=== PATIENT | female | born 1985 | race Caucasian/White ===

== ENCOUNTER 2017-03-16 18:14 | Inpatient (IN) | payer OTHER, SELFPAY ==
[2017-03-16] MEDS ORDERED: Metoclopramide 10 MG/2 ML SDV IVPUSH ONE (19:22)
[2017-03-16] MEDS ORDERED: Citric Acid/Sodium Citrate Solution 30 ML Cup PO ONE (19:22)
[2017-03-16] MEDS ORDERED: Sodium Chloride 0.9% 10 ML Syringe FLUSH PRN (19:22)
[2017-03-16] MEDS: Lactated Ringers 1,000 ML IV SCH ×2 (19:37→20:24)
[2017-03-16] MEDS ORDERED: Bupivacaine 0.5% 30 ML SDV ONE (20:01)
--- NOTE | 2017-03-16 20:12 | PCM.PREANE ---
Preanesthetic Assessment - Anesthesia/Transfusion/Family Hx Anesthesia History: Prior Anesthesia Without Reaction Family History of Anesthesia Reaction: No Transfusion History: No Prior Transfusion(s) - Review of Systems General: No Symptoms Pulmonary: No Symptoms Cardiovascular: No Symptoms Gastrointestinal: No symptoms Neurological: No Symptoms Other: Reports: None - Physical Assessment NPO Status Date: 03/16/17 NPO Status Time: 17:00 O2 Sat by Pulse Oximetry: 98 Respiratory Rate: 18 Vital Signs: Last Vital Signs Temp 97.5 F 03/16/17 18:20 Pulse 77 03/16/17 18:20 Resp 18 03/16/17 18:20 BP 127/61 03/16/17 18:20 Pulse Ox 98 03/16/17 18:20 Height: 5 ft 4 in Weight: 103.691 kg ASA Class: 2E Mental Status: Alert & Oriented x3 Airway Class: Mallampati = 1 Dentition: Reports: Normal Dentition Thyro-Mental Finger Breadths: 3 Mouth Opening Finger Breadths: 3 ROM/Head Extension: Full Lungs: Clear to auscultation, Normal respiratory effort Cardiovascular: Regular Rate, Regular Rhythm, No Murmurs - Lab Values: Laboratory Last Values WBC 11.49 K/mm3 (3.98-10.04) H 03/16/17 19:48 RBC 4.09 M/mm3 (3.98-5.22) 03/16/17 19:48 Hgb 10.4 gm/L (11.2-15.7) L 03/16/17 19:48 Hct 31.4 % (34.1-44.9) L 03/16/17 19:48 MCV 76.8 fl (79.4-94.8) L 03/16/17 19:48 MCH 25.4 pg (25.6-32.2) L 03/16/17 19:48 MCHC 33.1 g/dl (32.2-35.5) 03/16/17 19:48 RDW Std Deviation 36.2 fL (36.4-46.3) L 03/16/17 19:48 Plt Count 203 K/mm3 (182-369) 03/16/17 19:48 MPV 10.4 fl (9.4-12.3) 03/16/17 19:48 - Allergies Allergies/Adverse Reactions: Allergies Allergy/AdvReac Type Severity Reaction Status Date / Time No Known Allergies Allergy Verified 03/16/17 19:02 - Blood Blood Available: No - Acknowledgements Anesthesia Type Planned: Spinal Pt an Appropriate Candidate for the Planned Anesthesia: Yes Alternatives and Risks of Anesthesia Discussed w Pt/Guardian: Yes Pt/Guardian Understands and Agrees with Anesthesia Plan: Yes PreAnesthesia Questionnaire - Past Health History Medical/Surgical History: Denies Medical/Surgical History HEENT History: Reports: Other (see below) Other HEENT History: ear surgery as a child Cardiovascular History: Reports: None Respiratory History: Reports: None Gastrointestinal History: Reports: GERD (with preg) Genitourinary History: Reports: Renal calculus FUR JOINER History: Reports: , Other (see below) : 3 Para: 2 Other OB/BYN History: D&C Musculoskeletal History: Reports: None - Infectious Disease History Infectious Disease History: Reports: None - Past Surgical History HEENT Surgical History: Reports: Myringotomy w tube(s) Female Surgical History: Reports: section Musculoskeletal Surgical History: Reports: Other (see below) (ankle) Other Musculoskeletal Surgeries/Procedures:: ankle surgery as child - SUBSTANCE USE Smoking Status *Q: Never Smoker Tobacco Use Within Last Twelve Months: No Second Hand Smoke Exposure: No Days Per Week of Alcohol Use: 0 Recreational Drug Use History: No - HOME MEDS Home Medications: Home Meds Famotidine [Pepcid AC] 10 mg PO ASDIRECTED 03/16/17 [History] Pnv No.122/Iron/Folic Acid [ Multi Tablet] 1 each PO DAILY 03/16/17 [ History] - CURRENT (IN HOUSE) MEDS Current Meds: Current Medications Lactated Ringer's (Ringers, Lactated) 1,000 mls @ 125 mls/hr IV ASDIRECTED [facility] Last Admin: 03/16/17 19:37 Dose: 125 mls/hr Sodium Chloride (Saline Flush) 10 ml FLUSH ASDIRECTED PRN PRN Reason: Keep Vein Open Discontinued Medications Citric Acid/Sodium Citrate (Bicitra Solution) 30 ml PO ONETIME ONE Stop: 03/16/17 19:23 Metoclopramide HCl (Reglan) 10 mg IVPUSH ONETIME ONE Stop: 03/16/17 19:23 Last Admin: 03/16/17 19:38 Dose: 10 mg
[2017-03-16] MEDS ORDERED: Lactated Ringers 2,000 ML ONE (20:28)
[2017-03-16] MEDS ORDERED: ceFAZolin 1 GM Vial ONE (20:28)
[2017-03-16] MEDS ORDERED: Ondansetron 4 MG/2 ML SDV ONE (20:28)
[2017-03-16] MEDS ORDERED: Oxytocin 10 Units/1 ML SDV ONE (20:28)
[2017-03-16] MEDS ORDERED: Ketorolac 30 MG/ML SDV ONE (20:28)
[2017-03-16] MEDS ORDERED: Morphine PF 10 MG/10 ML SDV ONE (20:29)
[2017-03-16] MEDS ORDERED: ceFAZolin 2 GM in Premix Bag 1 BAG IV ONE (20:34)
[2017-03-16] MEDS ORDERED: Meperidine PF 50 MG/ML Syringe IVPUSH PRN (20:55)
[2017-03-16] MEDS ORDERED: fentaNYL 100 MCG/2 ML SDV IVPUSH PRN (20:55)
[2017-03-16] MEDS ORDERED: Ondansetron 4 MG/2 ML SDV IVPUSH PRN (20:55)
[2017-03-16] MEDS ORDERED: ePHEDrine 50 MG/ML SDV IVPUSH PRN ×2 (20:55→22:17)
[2017-03-16] MEDS ORDERED: diphenhydrAMINE 50 MG/ML SDV IVPUSH PRN ×2 (20:55→22:17)
[2017-03-16] MEDS ORDERED: ePHEDrine/Normal Saline 25 MG/5 ML Syringe ONE ×2 (21:06→21:13)
--- NOTE | 2017-03-16 22:08 | PCM.OPNOTE ---
[id number] section Findings: viable female, weight 3200g, APGARS 8/8 at 2107. Thin lower uterine segment. Pre Op Diagnosis: prior , labor Post-Op Diagnosis: Same Anesthesia Technique: Spinal Primary Surgeon: Lucia Falcon Anesthesia Provider: Jessica Shirley Ct Scan Special Procedures Technologist: Sher Farrell Jr Fluid Replacement, Intraop: 2,700 Output, Urine Amount: 250 EBL in mLs: 600 Complications: None Condition: Good Free Text/Narrative:: The patient was taken to the operating room where epidural anesthesia was dosed to surgical levels without difficulty. The patient was prepped and draped in the usual sterile fashion in the dorsal supine position with a leftward tilt. A Pfannenstiel skin incision was made with the scalpel through prior incision and carried through to the underlying layer of fascia. The fascia was incised in the midline and extended laterally using Tello scissors. Kimberli clamps were used to elevate the superior aspect of the fascial incision, which was elevated, and the underlying rectus muscles were dissected off bluntly and using Tello scissors. Attention was then turned to the inferior aspect of the fascial incision, which in similar fashion was grasped with Kimberli clamps, elevated, and the underlying rectus muscles were dissected off bluntly and using the tello. The rectus muscles were dissected in the midline. The peritoneum was identified and entered using Metzenbaum scissors; this incision was extended superiorly and inferiorly with good visualization of the bladder. The bladder blade was inserted. The vesicouterine peritoneum was identified and entered sharply using Metzenbaum scissors. This incision was extended laterally and the bladder flap was created digitally. The bladder blade was reinserted. The lower uterine segment was incised in a transverse fashion using the scalpel and extended using bandage scissors as well as manual traction. Clear fluid was noted. The infant was subsequently delivered by flexing the head to the incision. Body and shoulders followed without difficulty. The cord was clamped and cut. The infant was subsequently handed to the awaiting front desk admin whose presence had been requested.. The placenta was delivered spontaneously intact with a three-vessel cord noted. The uterus was exteriorized and cleared of all clots and debris. The uterine incision was repaired in 2 layers using 0 monocryl. Lower uterine segment was very thin. Hemostasis was visualized. Hemostasis was visualized bilaterally. The uterus was returned to the abdomen. The uterine incision was reexamined and it was noted to be hemostatic. The pelvis was copiously irrigated. The fascia was closed with 1 PDS suture, and the skin was closed with 3-0 monocryl. Sponge, lap, and instrument counts were correct x2. The patient was stable at the completion of the procedure and was subsequently transferred to the recovery room in stable condition.
[2017-03-16] MEDS ORDERED: Docusate Sodium 100 MG Cap PO PRN (22:17)
[2017-03-16] MEDS ORDERED: Lanolin 100% Cream 7 GM Tube TOP PRN (22:17)
[2017-03-16] MEDS ORDERED: Naloxone 0.4 MG/ML SDV IVPUSH PRN (22:17)
[2017-03-16] MEDS ORDERED: Witch Hazel Medicated Pads 100/Jar TOP PRN (22:17)
[2017-03-16] MEDS ORDERED: Dextrose 5%-0.45% NaCl 1,000 ML IV SCH (22:30)
[2017-03-16] MEDS ORDERED: Ketorolac 30 MG/ML SDV IVPUSH SCH (22:30)
[2017-03-16] MEDS ORDERED: Dextrose 5%-Lactated Ringers 1,000 ML IV SCH (22:30)
--- NOTE | 2017-03-16 22:33 | PCM.POSTAN ---
POST ANESTHESIA ASSESSMENT - MENTAL STATUS Mental Status: alert, oriented - VITAL SIGNS Pulse Rate: 87 SaO2: 100 Resp Rate: 16 Blood Pressure: 120/61 Temperature: 97.4 F - RESPIRATORY Respiratory Status: respiratory rate WNL, airway patent, O2 saturation stable, supplemental oxygen - CARDIOVASCULAR CV Status: pulse rate WNL, blood pressure stable - GASTROINTESTINAL GI Status: no symptoms - PAIN Pain Score: 0 - POST OP HYDRATION Hydration Status: adequate & stable
[2017-03-17] MEDS: Ketorolac 30 MG/ML SDV IVPUSH SCH ×3 (03:18→15:02)
--- NOTE | 2017-03-17 08:09 | PCM48HPAN ---
Post Anesthesia Note - EVALUATION WITHIN 48HRS OF ANESTHETIC Vital Signs in Normal Range: Yes Patient Participated in Evaluation: Yes Respiratory Function Stable: Yes Airway Patent: Yes Cardiovascular Function Stable: Yes Hydration Status Stable: Yes Pain Control Satisfactory: Yes Nausea and Vomiting Control Satisfactory: Yes Mental Status Recovered: Yes
[2017-03-17] MEDS: Acetaminophen/oxyCODONE 325-5 MG Tab PO PRN ×2 (17:19→22:33)
[2017-03-17] MEDS: Ibuprofen 600 MG Tab PO PRN (20:56)
--- NOTE | 2017-03-17 21:56 | PCM.PNPP ---
- General Info Date of Service: 03/17/17 Admission Dx/Problem (Free Text): Doing well. Baby stable in [place]. No complaints. Desires discharge tomorrow. Functional Status: Reports: pain controlled - Review of Systems General: Reports: No Symptoms HEENT: Reports: no symptoms Pulmonary: Reports: no symptoms Cardiovascular: Reports: No Symptoms Gastrointestinal: Reports: No symptoms Genitourinary: Reports: no symptoms Musculoskeletal: Reports: no symptoms Skin: Reports: no symptoms Neurological: Reports: No Symptoms Psychiatric: Reports: no symptoms - General Info Date of Service: 03/17/17 - Patient Data Vital Signs - most recent: Last Vital Signs Temp 36.6 C 03/17/17 17:22 Pulse 82 03/17/17 17:22 Resp 15 03/17/17 18:00 BP 129/82 03/17/17 17:22 Pulse Ox 100 03/17/17 18:00 Weight - most recent: 103.691 kg I&O - last 24 hours: Intake & Output 03/17/17 03/17/17 03/17/17 06:59 14:59 22:59 Intake Total 1950 2702 1000 Output Total 200 1600 Balance 1750 1102 1000 Lab Results - last 24 hrs: Laboratory Results - last 24 hr 03/16/17 03/17/17 03/17/17 Range/Units 19:48 06:10 06:10 WBC 10.08 H (3.98-10.04) K/mm3 RBC 3.50 L (3.98-5.22) M/mm3 Hgb 8.8 L (11.2-15.7) gm/L Hct 27.1 L (34.1-44.9) % MCV 77.4 L (79.4-94.8) fl MCH 25.1 L (25.6-32.2) pg MCHC 32.5 (32.2-35.5) g/dl RDW Std Deviation 36.1 L (36.4-46.3) fL Plt Count 173 L (182-369) K/mm3 MPV 11.0 (9.4-12.3) fl Neut % (Auto) 82.4 H (34.0-71.1) % Lymph % (Auto) 9.9 L (19.3-51.7) % [place] % (Auto) 6.8 (4.7-12.5) % Eos % (Auto) 0.3 L (0.7-5.8) Baso % (Auto) 0.3 (0.1-1.2) % Neut # (Auto) 8.30 H (1.56-6.13) K/mm3 Lymph # (Auto) 1.00 L (1.18-3.74) K/mm3 J[place] # (Auto) 0.69 H (0.24-0.36) K/mm3 Eos # (Auto) 0.03 L (0.04-0.36) K/mm3 Baso # (Auto) 0.03 (0.01-0.08) K/mm3 Manual Slide Review Abnormal smear Blood Type O NEGATIVE Cancelled Gel Antibody Screen Positive Cancelled Screen 0 ros/5 flds - neg RhIG Candidate? Yes Rhogam Indicated Cancelled Med Orders - Current: Current Medications Diphenhydramine HCl (Benadryl) 25 mg IVPUSH Q6H PRN PRN Reason: Itching or Nausea Docusate Sodium (Colace) 100 mg PO Q12H PRN PRN Reason: Constipation Emollient Ointment (Lansinoh Hpa) 0 gm TOP ASDIRECTED PRN PRN Reason: Sore Nipples Ephedrine Sulfate (Ephedrine Sulfate) 5 mg IVPUSH SEECOMMENT PRN PRN Reason: Other Fentanyl (Sublimaze) 50 mcg IVPUSH Q5M PRN PRN Reason: Pain Dextrose/Sodium Chloride (Dextrose 5%-1/2 Ns) 1,000 mls @ 125 mls/hr IV ASDIRECTED [facility] Last Admin: 03/17/17 05:12 Dose: 125 mls/hr Ibuprofen (Motrin) 600 mg PO Q6H PRN PRN Reason: mild pain or fever Last Admin: 03/17/17 20:56 Dose: 600 mg Naloxone HCl (Narcan) 0.1 mg IVPUSH SEECOMMENT PRN PRN Reason: Respiratory Depression Ondansetron HCl (Zofran) 4 mg IVPUSH ONETIME PRN PRN Reason: Nausea/Vomiting Last Admin: 03/17/17 01:41 Dose: 4 mg Oxycodone/Acetaminophen (Percocet 325-5 Mg) 2 tab PO Q4H PRN PRN Reason: Pain (moderate 4-6) Last Admin: 03/17/17 17:19 Dose: 2 tab Luis Miguel Amador (Tucks) 1 pad TOP ASDIRECTED PRN PRN Reason: Perineal Comfort Measure Discontinued Medications Bupivacaine HCl (Marcaine 0.5%) Confirm Administered Dose 30 ml .ROUTE .STK-MED ONE Stop: 03/16/17 20:02 Last Admin: 03/16/17 21:02 Dose: 20 ml Cefazolin Sodium (Ancef) Confirm Administered Dose 2 gm .ROUTE .STK-MED ONE Stop: 03/16/17 20:29 Citric Acid/Sodium Citrate (Bicitra Solution) 30 ml PO ONETIME ONE Stop: 03/16/17 19:23 Last Admin: 03/16/17 20:25 Dose: 30 ml Ephedrine Sulfate (Ephedrine In Ns) Confirm Administered Dose 25 mg .ROUTE .STK- MED ONE Stop: 03/16/17 21:07 Ephedrine Sulfate (Ephedrine In Ns) Confirm Administered Dose 25 mg .ROUTE .STK- MED ONE Stop: 03/16/17 21:14 Lactated Ringer's (Ringers, Lactated) 1,000 mls @ 125 mls/hr IV ASDIRECTED [facility] Last Admin: 03/16/17 20:24 Dose: 125 mls/hr Lactated Ringer's (Ringers, Lactated) Confirm Administered Dose 2,000 mls @ as directed .ROUTE .STK-MED ONE Stop: 03/16/17 20:29 Cefazolin Sodium/Dextrose 2 gm (/ Premix) 50 mls @ 100 mls/hr IV ONETIME ONE Stop: 03/16/17 21:03 Last Admin: 03/17/17 03:27 Dose: 100 mls/hr Dextrose/Lactated Ringer's (Dextrose 5%-Lactated Ringers) 1,000 mls @ 125 mls/ hr IV ASDIRECTED [facility] Stop: 03/17/17 06:29 Last Admin: 03/17/17 01:00 Dose: 125 mls/hr Ketorolac Tromethamine (Toradol) Confirm Administered Dose 30 mg .ROUTE .STK- MED ONE Stop: 03/16/17 20:29 Ketorolac Tromethamine (Toradol) 30 mg IVPUSH Q6H [facility] Stop: 03/17/17 10:31 Last Admin: 03/17/17 03:26 Dose: Not Given Ketorolac Tromethamine (Toradol) 30 mg IVPUSH Q6H [facility] Stop: 03/17/17 15:01 Last Admin: 03/17/17 15:02 Dose: 30 mg Meperidine HCl (Demerol) 12.5 mg IVPUSH ONETIME PRN PRN Reason: shivering Stop: 03/17/17 20:56 Last Admin: 03/16/17 22:11 Dose: 12.5 mg Metoclopramide HCl (Reglan) 10 mg IVPUSH ONETIME ONE Stop: 03/16/17 19:23 Last Admin: 03/16/17 19:38 Dose: 10 mg Morphine Sulfate (Duramorph Pf) Confirm Administered Dose 10 mg .ROUTE .STK-MED ONE Stop: 03/16/17 20:30 Ondansetron HCl (Zofran) Confirm Administered Dose 4 mg .ROUTE .STK-MED ONE Stop: 03/16/17 20:29 Oxytocin (Pitocin) Confirm Administered Dose 10 unit .ROUTE .STK-MED ONE Stop: 03/16/17 20:29 Sodium Chloride (Saline Flush) 10 ml FLUSH ASDIRECTED PRN PRN Reason: Keep Vein Open - Interaction Infant Disposition, : Not Applicable Support Person: - Recovery Exam Fundal Tone: Firm Fundal Level: At Umbilicus Fundal Placement: Midline Lochia Amount: Small Lochia Color: Rubra/Red Perineum Description: Intact, Minimal Bruising/Swelling Episiotomy/Laceration: None Bladder Status: Indwelling Catheter in Place Urinary Elimination: Indwelling Catheter - Exam General: alert, oriented HEENT: Pupils equal Neck: supple Lungs: Clear to auscultation, Normal respiratory effort Cardiovascular: Regular Rate, Regular Rhythm Abdomen: bowel sounds present, soft, no tenderness, no distension Extremities: no edema Skin: warm, dry, intact Wound/Incisions: healing well Neurological: no new focal deficit Psy/Mental Status: alert, normal affect, normal mood - Problem List Review Problem List Initiated/Reviewed/Updated: Yes - My Orders Last 24 Hours: My Active Orders 03/16/17 22:17 Activity as Tolerated [RC] .Routine Communication Order [RC] PER UNIT ROUTINE Communication Order [RC] PER UNIT ROUTINE Communication Order [RC] PER UNIT ROUTINE Notify Provider Intake and Out [RC] ASDIRECTED Acetaminophen/oxyCODONE [Percocet 325-5 MG] 2 tab PO Q4H PRN Docusate Sodium [Colace] 100 mg PO Q12H PRN Lanolin [Lansinoh HPA] See Dose Instructions TOP ASDIRECTED PRN Naloxone [Narcan] 0.1 mg IVPUSH SEECOMMENT PRN Witch Marjorie [Tucks] 1 pad TOP ASDIRECTED PRN diphenhydrAMINE [Benadryl] 25 mg IVPUSH Q6H PRN ePHEDrine [ePHEDrine Sulfate] 5 mg IVPUSH SEECOMMENT PRN Assess Lochia [WOMSER] Per Unit Routine Assess Uterine Involution [WOMSER] Per Unit Routine Breast Pump [WOMSER] Routine Medication Administration Instruction [OM.PC] Routine 03/16/17 22:30 Dextrose 5%-0.45% NaCl [Dextrose 5%-1/2 NS] 1,000 ml IV ASDIRECTED 03/17/17 21:00 Ibuprofen [Motrin] 600 mg PO Q6H PRN - Assessment Assessment:: POD1 Doing well. - Plan Plan:: Routine care
[2017-03-18] MEDS: Ibuprofen 600 MG Tab PO PRN (04:14)
[2017-03-18] MEDS: Acetaminophen/oxyCODONE 325-5 MG Tab PO PRN (06:34)
[2017-03-18 08:36] VITALS: BP 117/68
--- NOTE | 2017-03-18 08:40 | PCM.DCSUM1 ---
Discharge Summary - Discharge Data Discharge Date: 03/18/17 Discharge Disposition: Home, Self-Care 01 Condition: Good - Patient Summary/Data Operative Procedure(s) Performed: repeat section Hospital Course: Admitted for labor and repeat . - Patient Instructions Diet: Usual Diet as Tolerated Activity: No Strenuous Activities Driving: Do Not Drive Wound/Incision Care: Keep Operative Site/Wound Site Clean and Dry Notify Provider of: Fever, Increased Pain, Swelling and Redness, Drainage, Nausea and/or Vomiting - Discharge Plan Home Medications: Home Meds Famotidine [Pepcid AC] 10 mg PO ASDIRECTED 03/16/17 [History] Pnv No.122/Iron/Folic Acid [ Multi Tablet] 1 each PO DAILY 03/16/17 [ History] Patient Handouts: Home Care Instructions for Mom Referrals: Lucia Falcon MD [Primary Care Provider] - - Discharge Summary/Plan Comment DC Time >30 min.: No - Patient Data Vitals - Most Recent: Last Vital Signs Temp 36.3 C 03/18/17 08:23 Pulse 79 03/18/17 08:23 Resp 16 03/18/17 08:23 BP 117/68 03/18/17 08:23 Pulse Ox 98 03/18/17 08:23 Weight - Most Recent: 103.691 kg I&O - Last 24 hours: Intake & Output 03/17/17 03/18/17 03/18/17 22:59 06:59 14:59 Intake Total 1180 Balance 1180 Lab Results - Last 24 hrs: Laboratory Results - last 24 hr 03/17/17 Range/Units 06:10 Blood Type Cancelled Gel Antibody Screen Cancelled Screen 0 ros/5 flds - neg RhIG Candidate? Yes Rhogam Indicated Cancelled Med Orders - Current: Current Medications Diphenhydramine HCl (Benadryl) 25 mg IVPUSH Q6H PRN PRN Reason: Itching or Nausea Docusate Sodium (Colace) 100 mg PO Q12H PRN PRN Reason: Constipation Emollient Ointment (Lansinoh Hpa) 0 gm TOP ASDIRECTED PRN PRN Reason: Sore Nipples Ephedrine Sulfate (Ephedrine Sulfate) 5 mg IVPUSH SEECOMMENT PRN PRN Reason: Other Fentanyl (Sublimaze) 50 mcg IVPUSH Q5M PRN PRN Reason: Pain Dextrose/Sodium Chloride (Dextrose 5%-1/2 Ns) 1,000 mls @ 125 mls/hr IV ASDIRECTED [facility] Last Admin: 03/17/17 05:12 Dose: 125 mls/hr Ibuprofen (Motrin) 600 mg PO Q6H PRN PRN Reason: mild pain or fever Last Admin: 03/18/17 04:14 Dose: 600 mg Naloxone HCl (Narcan) 0.1 mg IVPUSH SEECOMMENT PRN PRN Reason: Respiratory Depression Ondansetron HCl (Zofran) 4 mg IVPUSH ONETIME PRN PRN Reason: Nausea/Vomiting Last Admin: 03/17/17 01:41 Dose: 4 mg Oxycodone/Acetaminophen (Percocet 325-5 Mg) 2 tab PO Q4H PRN PRN Reason: Pain (moderate 4-6) Last Admin: 03/18/17 06:34 Dose: 2 tab Witch Marjorie (Tucks) 1 pad TOP ASDIRECTED PRN PRN Reason: Perineal Comfort Measure Discontinued Medications Bupivacaine HCl (Marcaine 0.5%) Confirm Administered Dose 30 ml .ROUTE .STK-MED ONE Stop: 03/16/17 20:02 Last Admin: 03/16/17 21:02 Dose: 20 ml Cefazolin Sodium (Ancef) Confirm Administered Dose 2 gm .ROUTE .STK-MED ONE Stop: 03/16/17 20:29 Citric Acid/Sodium Citrate (Bicitra Solution) 30 ml PO ONETIME ONE Stop: 03/16/17 19:23 Last Admin: 03/16/17 20:25 Dose: 30 ml Ephedrine Sulfate (Ephedrine In Ns) Confirm Administered Dose 25 mg .ROUTE .STK- MED ONE Stop: 03/16/17 21:07 Ephedrine Sulfate (Ephedrine In Ns) Confirm Administered Dose 25 mg .ROUTE .STK- MED ONE Stop: 03/16/17 21:14 Lactated Ringer's (Ringers, Lactated) 1,000 mls @ 125 mls/hr IV ASDIRECTED [facility] Last Admin: 03/16/17 20:24 Dose: 125 mls/hr Lactated Ringer's (Ringers, Lactated) Confirm Administered Dose 2,000 mls @ as directed .ROUTE .STK-MED ONE Stop: 03/16/17 20:29 Cefazolin Sodium/Dextrose 2 gm (/ Premix) 50 mls @ 100 mls/hr IV ONETIME ONE Stop: 03/16/17 21:03 Last Admin: 03/17/17 03:27 Dose: 100 mls/hr Dextrose/Lactated Ringer's (Dextrose 5%-Lactated Ringers) 1,000 mls @ 125 mls/ hr IV ASDIRECTED [facility] Stop: 03/17/17 06:29 Last Admin: 03/17/17 01:00 Dose: 125 mls/hr Ketorolac Tromethamine (Toradol) Confirm Administered Dose 30 mg .ROUTE .STK- MED ONE Stop: 03/16/17 20:29 Ketorolac Tromethamine (Toradol) 30 mg IVPUSH Q6H [facility] Stop: 03/17/17 10:31 Last Admin: 03/17/17 03:26 Dose: Not Given Ketorolac Tromethamine (Toradol) 30 mg IVPUSH Q6H [facility] Stop: 03/17/17 15:01 Last Admin: 03/17/17 15:02 Dose: 30 mg Meperidine HCl (Demerol) 12.5 mg IVPUSH ONETIME PRN PRN Reason: shivering Stop: 03/17/17 20:56 Last Admin: 03/16/17 22:11 Dose: 12.5 mg Metoclopramide HCl (Reglan) 10 mg IVPUSH ONETIME ONE Stop: 03/16/17 19:23 Last Admin: 03/16/17 19:38 Dose: 10 mg Morphine Sulfate (Duramorph Pf) Confirm Administered Dose 10 mg .ROUTE .STK-MED ONE Stop: 03/16/17 20:30 Ondansetron HCl (Zofran) Confirm Administered Dose 4 mg .ROUTE .STK-MED ONE Stop: 03/16/17 20:29 Oxytocin (Pitocin) Confirm Administered Dose 10 unit .ROUTE .STK-MED ONE Stop: 03/16/17 20:29 Sodium Chloride (Saline Flush) 10 ml FLUSH ASDIRECTED PRN PRN Reason: Keep Vein Open *Q Meaningful Use (DIS) - VTE *Q VTE Criteria *Q: - Stroke *Q Stroke Criteria *Q: - AMI *Q AMI Criteria *Q:
== END 2017-03-18 08:30 | disposition home or self-care (01) | DRG 766 ==
LOC: JD.OBCHECK 18:14 → JD.OB 18:14 → JD.OBCHECK 19:51 → JD.OB 21:07
PROVIDERS: ADMIT Obstetrics & Gynecology; ATTEND Obstetrics & Gynecology
PROC: 10D00Z1 Extraction of Products of Conception, Low, Open Approach (ICD-10-PCS; principal; 2017-03-16)
DX: O34.211 Maternal care for low transverse scar from previous cesarean delivery (principal); N85.8 Other specified noninflammatory disorders of uterus; O99.824 Streptococcus B carrier state complicating childbirth; Z3A.38 38 weeks gestation of pregnancy; Z37.0 Single live birth
CPT/HCPCS: 01961; 36415; 85025; 85027; 85461; 86850; 86870; 86900; 86901; 88307; 88307-26; 94762; A9270-GY; J0690; J1885; J2175; J2270; J2405; J2590; J2765; J2790; J7042; J7050; J7120